=== PATIENT | female | born 1965 | race Caucasian/White ===

== ENCOUNTER 2017-04-21 18:01 | Observation (INO) | payer OTHER ==
[2017-04-21 18:00] VITALS: BP 126/70; PULSE 76; RESP 18; TEMP 97.8; O2SAT 99
[~2017-04-21 18:01] MED LIST: ASPI-183 PO
[2017-04-21] MEDS ORDERED: SODIUM CHLORIDE 0.9% FLUSH 10 ML FLUSH IV FLUSH PRN (19:00)
[2017-04-21] MEDS ORDERED: NITROGLYCERIN 0.4 MG SL 25 TABS/BTL SL PRN (19:00)
[2017-04-21 19:35] LABS: TROPONIN I LESS THAN 0.02 NG/ML (0.02-0.05)
[2017-04-21 19:42] VITALS: O2SAT 96
[2017-04-21 20:10] VITALS: PULSE 73
[2017-04-21] MEDS ORDERED: MORPHINE SULFATE 2 MG/ML INJ IV PUSH PRN (20:30)
[2017-04-21] MEDS: SODIUM CHLORIDE 0.9% FLUSH 10 ML FLUSH IV FLUSH SCH (20:51)
[2017-04-21 21:15] VITALS: BP 103/71; PULSE 70; RESP 16; TEMP 97.2; O2SAT 98
[2017-04-21 22:17] LABS: TROPONIN I LESS THAN 0.02 NG/ML (0.02-0.05)
[2017-04-22 01:00] VITALS: BP 114/68; PULSE 68; RESP 16; TEMP 97.6; O2SAT 96
[2017-04-22 04:06] VITALS: BP 116/71; PULSE 75; RESP 18; TEMP 98; O2SAT 97
[2017-04-22 08:00] VITALS: BP 113/77; PULSE 75; PULSE 83; RESP 18; TEMP 96.3; O2SAT 97
[2017-04-22] MEDS: SODIUM CHLORIDE 0.9% FLUSH 10 ML FLUSH IV FLUSH SCH (09:00)
[2017-04-22] MEDS ORDERED: ASPIRIN 325 MG TAB PO SCH (09:00)
--- NOTE | 2017-04-22 09:33 | HHI.HP ---
[facility]Staff Admission Diagnosis Diagnoses: (1) Atypical chest pain Diagnosis: Principal Chief Complaint: Chest pain Travel History International Travel<30 Days: No Contact w/Intl Traveler <30 Da: No History of Present Illness 52-year-old female with known history of Augustine's, migraine cephalgia who presented to hospital for evaluation chest pain. Patient indicates that she been having chest discomfort for the last week. She states that is located in the left side of her chest. There has been some associated diaphoresis, dizziness. Denies any nausea, vomiting, shortness of breath, dyspnea. She states that it usually happens when she is sitting at work. The pain last for probably 5 minutes at a time and goes away on its own. She denies any exertional chest discomfort. Patient was tolerating over the last week however yesterday the pain went up into her neck. Because of the change in pain she went to emergency department for evaluation. Her workup was unremarkable and is recommended by the ER physician that the patient be observed for chest pain evaluation Review of Systems Constitutional: COMPLAINS OF: Diaphoretic episodes Cardiovascular: COMPLAINS OF: Chest pain Past Family Social History Past Medical History History of Augustine's Migraine cephalgia Past Surgical History Appendectomy Cholecystectomy Hysterectomy Thoracic spine and lumbar spine surgery Carpal tunnel surgery Reported Medications Reported Meds & Active Scripts Active Reported Aspirin 325 Mg Tab 325 Mg PO DAILY Allergies: Coded Allergies: Iodine and Iodide Containing Produc (Verified Allergy, Severe, 04/21/17) Sulfa (Sulfonamide Antibiotics) (Verified Allergy, Severe, 04/21/17) ciprofloxacin (Verified Allergy, Severe, 04/21/17) sulfamethoxazole (Verified Allergy, Severe, 04/21/17) sumatriptan (Verified Allergy, Severe, 04/21/17) trimethoprim (Verified Allergy, Severe, 04/21/17) Family History Reviewed is significant for mother having high blood pressure, she did have a distant aunt that had myocardial infarction at age 60 Social History Patient eyes any tobacco, alcohol or illicit drugs Physical Exam Vital Signs Vital Signs Date Time Temp Pulse Resp B/P (MAP) Pulse Ox O2 Delivery O2 Flow Rate FiO2 04/22/17 08:00 96.3 83 18 113/77 (89) 97 04/22/17 04:06 98.0 75 18 116/71 (86) 97 04/22/17 01:00 97.6 68 16 114/68 (83) 96 04/21/17 21:15 97.2 70 16 103/71 (82) 98 04/21/17 20:10 73 04/21/17 19:42 96 21 04/21/17 18:00 97.8 76 18 126/70 (88) 99 Physical Exam GENERAL: Well-developed, well-nourished, in no acute distress. alert and orientated HEENT: Head is normocephalic without any lesions or masses noted. Facial features are symmetric. Eyes: Pupils equal round reactive to light. Extraocular muscles are intact. Conjunctivae were clear. Oropharyngeal: Pharynx without any erythema edema. Tongue is midline without deviation. Buccal mucosa is moist without any masses or lesions NECK: Supple without any masses. Trachea midline no deviation. No JVD, no bruits are appreciated CARDIAC: Regular rhythm, regular rate. S1/S2 are heard. No murmurs gallops or rubs. LUNGS: Clear to auscultation bilaterally. No wheeze, rhonchi or rales. No use of accessory muscles on inspiration or expiration. ABDOMEN: Soft, nontender. Nondistended. Bowel sounds heard in all 4 quadrants. No organomegaly or masses. Negative rebound, negative guarding EXTREMITIES: No edema, pulses are equal bilaterally. No cyanosis or clubbing NEUROLOGY: Mood and affect appear appropriate. Cranial nerves II through XII grossly intact. Muscle strength 5/5 in upper and lower extremities bilaterally. Deep tendon reflexes are 2+ in upper and lower extremities bilaterally. Laboratory Laboratory Tests Test 04/21/17 19:12 04/21/17 21:45 Total Creatine Kinase 131 125 Creatine Kinase MB 0.7 0.8 Troponin I LESS THAN 0.02 LESS THAN 0.02 Caprini VTE Risk Assessment Caprini VTE Risk Assessment: Mod/High Risk (score >= 2) Caprini Risk Assessment Model Point Value = 1 Point Value = 2 Point Value = 3 Point Value = 5 Age 41-60 Minor surgery BMI > 25 kg/m2 Swollen legs Varicose veins or History of unexplained or recurrent spontaneous Oral contraceptives or hormone replacement Sepsis (< 1 month) Serious lung disease, including pneumonia (< 1 month) Abnormal pulmonary function Acute myocardial infarction Congestive heart failure (< 1 month) History of inflammatory bowel disease Medical patient at bed rest Age 61-74 Arthroscopic surgery Major open surgery (> 45 min) Laparoscopic surgery (> 45 min) Malignancy Confined to bed (> 72 hours) Immobilizing plaster cast Central venous access Age >= 75 History of VTE Family history of VTE Factor V Leiden Prothrombin [id number] Lupus anticoagulant Anticardiolipin antibodies Elevated serum homocysteine Heparin-induced thrombocytopenia Other congenital or acquired thrombophilia Stroke (< 1 month) Elective arthroplasty Hip, pelvis, or leg fracture Acute spinal cord injury (< 1 month) Prophylaxis Regimen Total Risk Factor Score Risk Level Prophylaxis Regimen 0-1 Low Early ambulation 2 Moderate Order ONE of the following: *Sequential Compression Device (SCD) *Heparin 5000 units SQ BID 3-4 Higher Order ONE of the following medications: *Heparin 5000 units SQ TID *Enoxaparin/Lovenox 40 mg SQ daily (WT < 150 kg, CrCl > 30 mL/min) *Enoxaparin/Lovenox 30 mg SQ daily (WT < 150 kg, CrCl > 10-29 mL/min) *Enoxaparin/Lovenox 30 mg SQ BID (WT < 150 kg, CrCl > 30 mL/min) AND/OR *Sequential Compression Device (SCD) 5 or more Highest Order ONE of the following medications: *Heparin 5000 units SQ TID (Preferred with Epidurals) *Enoxaparin/Lovenox 40 mg SQ daily (WT < 150 kg, CrCl > 30 mL/min) *Enoxaparin/Lovenox 30 mg SQ daily (WT < 150 kg, CrCl > 10-29 mL/min) *Enoxaparin/Lovenox 30 mg SQ BID (WT < 150 kg, CrCl > 30 mL/min) AND *Sequential Compression Device (SCD) Assessment and Plan Assessment and Plan Chest pain, atypical Patient's only risk factor is age Patient had been ruled out for acute coronary event with serial cardiac enzymes that have remained negative Serial EKGs were reviewed by myself which remain normal sinus rhythm without any changes Myocardial perfusion test was unremarkable for any ischemia Patient continued on aspirin, nitroglycerin as needed morphine for pain control 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 Diet: Regular diet Medications per medication reconciliation Follow-up primary medical doctor in one week [facility] Apr 22, 2017 09:33
[2017-04-22 12:00] VITALS: BP 100/67; PULSE 71; RESP 18; TEMP 97.4; O2SAT 99
[2017-04-22] MEDS ORDERED: ACETAMINOPHEN 325 MG TAB PO PRN (13:00)
[2017-04-22] MEDS ORDERED: REGADENOSON INJ 0.4 MG/5 ML SYR IV ONE (13:14)
[2017-04-22] MEDS ORDERED: AMINOPHYLLINE INJ 250 MG/10 ML VIAL IV ONE (13:44)
[2017-04-22 14:05] VITALS: O2SAT 98
--- NOTE | 2017-04-22 14:54 | EKG ---
Date Performed: 04/21/2017 Time Performed: 19:06:57 PTAGE: 52 years EKG: Sinus rhythm NORMAL ECG Since PREVIOUS TRACING , no significant change noted PREVIOUS TRACIN04/21/2017 14.38.54 DOCTOR: Ko Keyes Interpretating Date/Time 04/22/2017 14:52:48
--- NOTE | 2017-04-22 14:54 | EKG ---
Date Performed: 04/21/2017 Time Performed: 21:43:13 PTAGE: 52 years EKG: Sinus rhythm NORMAL ECG Since PREVIOUS TRACING , no significant change noted PREVIOUS TRACIN04/21/2017 19.06 DOCTOR: Ko Keyes Interpretating Date/Time 04/22/2017 14:53:17
--- NOTE | 2017-04-22 14:55 | RADRPT ---
EXAM DATE/TIME: 04/22/2017 12:59 [facility] COMPARISON: CHEST SINGLE AP, April 21, 2017, 15:14. INDICATIONS : Chest pain for 1 week. Angina. DOSE: 27.3 mCi Tc99m Myoview at stress. 8.6 mCi Tc99m Myoview at rest. 0.4 mg Lexiscan STRESS SYMPTOMS: Headache, dyspnea, and chest pain. MEDICATIONS: 1.) 100 mg Aminophylline IV EJECTION FRACTION: 49% MEDICAL HISTORY : Augustine's disease. SURGICAL HISTORY : Hysterectomy. Cholecystectomy. Appendectomy. ENCOUNTER: Initial ACUITY: 2 days PAIN SCALE: 0/10 LOCATION: Bilateral chest TECHNIQUE: The patient underwent pharmacologic stress with infusion of prescribed dose. Continuous ECG tracing was monitored during stress. Gated SPECT imaging was performed after stress and conventional SPECT i maging was performed at rest. The examination was performed on a SPECT/CT scanner, both attenuation and non-corrected datasets were reviewed. FINDINGS: DISTRIBUTION: The maximum perfused segment at stress is in the anterolateral wall. PERFUSION STUDY: The pattern of perfusion at stress is within normal limits. GATED STUDY: There is intact wall motion and thickening without hypokinetic or dyskinetic segments. CONCLUSION: No appreciable ischemia. RISK CATEGORY: Low (<1% Annual Mortality Rate) Kermit Kraft MD on April 22, 2017 at 14:52 Board Certified Radiologist. This report was verified electronically.
--- NOTE | 2017-04-22 14:57 | HHI.DCPOC ---
Discharge Care Plan Diagnosis: (1) Atypical chest pain Goals to Promote Your Health * To prevent worsening of your condition and complications * To maintain your health at the optimal level Directions to Meet Your Goals Take your medications as prescribed Follow your dietary instruction Follow activity as directed Keep your appointments as scheduled Take your immunizations and boosters as scheduled If your symptoms worsen call your PCP, if no PCP go to Urgent Care Center or Emergency Room Smoking is Dangerous to Your Health. Avoid second hand smoke Call the 24-hour hour crisis hotline for domestic abuse at [facility] Apr 22, 2017 14:57
--- NOTE | 2017-04-25 19:00 | TR ---
Date Performed: 04/22/2017 Time Performed: 13:26:27 DOCTOR: Rosmery Bermudez DRUG LIST: CLINICAL HISTORY: REASON FOR TEST: REASON FOR ENDING: OBSERVATION: CONCLUSION: Lexiscan stress test was performed under standard four minute protocol. Radionuclid e was injected one minute prior to ending the test. No electrocardiographic abormalities were present to suggest ischemia. Nuclear imaging and interpretation are pending. COMMENTS:
== END 2017-04-22 16:18 | disposition home or self-care (01) ==
LOC: PHEDDLT 18:01 → PH3B 18:02
PROVIDERS: ADMIT Hospitalist; ATTEND Hospitalist
DX: R07.89 Other chest pain (principal); E06.3 Autoimmune thyroiditis; G43.909 Migraine, unspecified, not intractable, without status migrainosus; Z90.710 Acquired absence of both cervix and uterus
CPT/HCPCS: 78452; 82550; 82552; 84484; 93005; 93017; A9502; G0378; J0280; J2270; J2785